=== PATIENT | female | born 1955 | race African-American/Black ===

== ENCOUNTER 2016-01-04 13:00 | Inpatient (IN) | payer OTHER, MEDICARE ==
[~2016-01-04] VITALS: Ht 152.4 cm; Wt 90.8 kg
--- NOTE | 2016-02-19 08:44 | MH ---
cc: Michele REDDY M.D. DATE OF ADMISSION: 02/23/2016 ADMISSION DIAGNOSIS Osteoarthritic degeneration right knee, now being admitted for right total knee arthroplasty. HISTORY OF PRESENT ILLNESS Admission history and physical is as follows: This pleasant 60-year-old female is being admitted today for right total knee arthroplasty due to severe painful osteoarthritic degeneration right knee. OTHER PAST HISTORY 1. She has had a left total knee done in the past. 2. She has a history of hypertension for which she takes hydrochlorothiazide. REVIEW OF SYSTEMS Noncontributory. FAMILY HISTORY Noncontributory. SOCIAL HISTORY She does not smoke or drink. ALLERGIES DARVOCET. PHYSICAL EXAMINATION GENERAL: We find a 60-year-old female, well-developed, well-nourished, oriented x3, complaining of pain in her right knee. VITAL SIGNS: Blood pressure 140/82, pulse 67 and regular, respirations 20, temperature 98.1, pulse oximetry 99% on room air. HEENT: Eyes PERRLA, EOMI. Ears, nose, mouth clear. NECK: Supple. LUNGS: Clear. HEART: Regular rate. ABDOMEN: Soft. Positive bowel sounds and nontender. EXTREMITIES: Reveals the right knee to be tender with crepitance on range of motion. She is neurovascularly intact to her toes. IMPRESSION AT THIS TIME Severe painful osteoarthritic degeneration, right knee. PLAN Admission for right total knee arthroplasty today. The patient understands the procedure well and the use of Hibiclens scrub and Bactroban preoperatively and plans on going to a rehab center three days after surgery. MD FREDRICK Dixon/EDOUARD /2:24 PM /8:34 AM
[2016-02-19] MEDS ORDERED: AMLO5TAB2 PO (12:10)
[2016-02-19] MEDS ORDERED: HYDR25TA5 PO (12:10)
[2016-02-19] MEDS ORDERED: HYDR-3535 PO (12:10)
[2016-02-23] MEDS ORDERED: VANCOMYCIN 1000 MG/NS 250 ML (for <70 kg) IV SCH ×2 (05:30)
[2016-02-23] MEDS ORDERED: ceFAZolin 2 GM PREMIX 50 ML IV SCH (05:30)
[2016-02-23] MEDS: CHLORHEXIDINE GLUCONATE 4% SOLN 120 ML BTL TOP SCH (05:30)
[2016-02-23] MEDS ORDERED: METOPROLOL TARTRATE 25 MG TAB PO PRN (05:45)
[2016-02-23] MEDS ORDERED: INSULIN HUMAN REGULAR 1,000 UNITS/10 ML VIAL SQ PRN (05:45)
[2016-02-23 05:48] VITALS: BP 128/68; PULSE 68; RESP 20; TEMP 98.2; O2SAT 99
[2016-02-23] MEDS ORDERED: LACTATED RINGER'S 1000 ML IV SCH (06:00)
[2016-02-23] MEDS ORDERED: SODIUM CHLORID 0.9% 500 ML IV SCH (06:00)
[2016-02-23 06:07] LABS: AUTOMATED NEUTROPHIL # 2.8 TH/MM3 (1.8-7.7); BASOPHIL % 0.3 % (0.0-2.0); EOSINOPHIL # 0.1 TH/MM3 (0-0.4); EOSINOPHIL % 1.2 % (0.0-4.0); HEMATOCRIT 40.3 % (35.0-46.0); LYMPH % 58.9 % (9.0-44.0); MEAN CELL VOLUME 80.7 FL (80.0-100.0); MEAN CORPUSCULAR HEMOGLOBIN 26.9 PG (27.0-34.0); MEAN CORPUSCULAR HGB CONC 33.3 % (32.0-36.0); MONO % 6.8 % (0.0-8.0); NEUT % 32.8 % (16.0-70.0); PLATELET COUNT 264 TH/MM3 (150-450); RED CELL DISTRIBUTION WIDTH 14.7 % (11.6-17.2); WHITE BLOOD COUNT 8.6 TH/MM3 (4.0-11.0)
[2016-02-23 06:10] LABS: HEMO FLAGS AUTO DIFF
[2016-02-23] MEDS ORDERED: FAMOTIDINE 20 MG/2 ML VIAL ONE (07:08)
[2016-02-23] MEDS ORDERED: DEXAMETHASONE SOD PHOS 4 MG/ML VIAL ONE (07:08)
[2016-02-23] MEDS ORDERED: MIDAZOLAM HCL 5 MG/5 ML VIAL ONE (07:08)
[2016-02-23 07:21] LABS: PLATELET ESTIMATE SMEAR NORMAL (NORMAL); PLATELET MORPHOLOGY NORMAL (NORMAL); SCAN/DIFF AUTO DIFF CONFIRMED
[2016-02-23] MEDS ORDERED: CPMMACHINE (08:12)
[2016-02-23] MEDS ORDERED: SODIUM CHLORIDE 0.9% FLUSH 5 ML FLUSH IVF PRN (08:15)
[2016-02-23] MEDS ORDERED: TEMAZEPAM 15 MG CAP PO PRN (08:15)
[2016-02-23] MEDS ORDERED: ACETAMINOPHEN/HYDROcodone 325 MG/10 MG TAB PO PRN (08:15)
[2016-02-23] MEDS ORDERED: TRANEXAMIC ACID INJ 0 MG in SODIUM CHLORIDE 0.9% INJ 100 ML IV SCH (08:15)
[2016-02-23] MEDS ORDERED: ACETAMINOPHEN 325 MG TAB PO PRN (08:15)
[2016-02-23] MEDS ORDERED: diphenhydrAMINE HCL 50 MG/ML VIAL IV PRN (08:15)
[2016-02-23] MEDS ORDERED: ONDANSETRON HCL 4 MG/2 ML VIAL IVP PRN (08:15)
[2016-02-23] MEDS ORDERED: NALOXONE HCL 0.4 MG/ML AMP IV PRN ×2 (08:15)
[2016-02-23] MEDS: BUPIVACAINE LIPOSO PF 1.3% INJ 20 ML, BUPIVACAINE PF 0.25% INJ 20 ML in SODIUM CHLORIDE... P-ARTICULR SCH ×2 (08:30→10:06)
[2016-02-23] MEDS: SODIUM CHLORIDE 0.9% IV SCH ×2 (08:30→08:35)
[2016-02-23] MEDS: TRANEXAMIC ACID IV SCH ×2 (08:30→08:35)
[2016-02-23] MEDS ORDERED: ceFAZolin INJ 1,000 MG VIAL XX ONE (08:55)
[2016-02-23] MEDS: LACTATED RINGER'S 1000 ML INJ 1,000 ML IV SCH ×2 (09:00→19:45)
[2016-02-23] MEDS: SODIUM CHLORIDE 0.9% FLUSH 5 ML FLUSH IVF SCH ×2 (09:00→19:45)
[2016-02-23] MEDS: HYDROCHLOROTHIAZIDE 25 MG TAB PO SCH (09:00)
[2016-02-23] MEDS: amLODIPine BESYLATE 5 MG TAB PO SCH (09:00)
[2016-02-23] MEDS ORDERED: LACTATED RINGER'S 1000 ML INJ 1,000 ML IV ONE (10:48)
[2016-02-23] MEDS ORDERED: PROPOFOL 200 MG/20 ML AMP IV ONE (10:48)
[2016-02-23] MEDS ORDERED: ONDANSETRON HCL 4 MG/2 ML VIAL IV PUSH ONE (10:48)
[2016-02-23] MEDS ORDERED: DO NOT ADM ANY ANTICOAGULANT DRUGS XX PRN (11:00)
[2016-02-23] MEDS ORDERED: Post-op Orders (for Pharmacy) MISC XX ONE (11:00)
[2016-02-23] MEDS ORDERED: fentaNYL CITRATE 250 MCG/5 ML AMP ONE (11:01)
[2016-02-23] MEDS: MORPHINE SULFATE 30 MG/30 ML PCA IV SCH (11:12)
[2016-02-23] MEDS ORDERED: TRANEXAMIC ACID IV SCH (11:30)
[2016-02-23] MEDS ORDERED: SODIUM CHLORIDE 0.9% IV SCH (11:30)
[2016-02-23] MEDS ORDERED: BUPIVACAINE HCL PF 0.5% 30 ML VIAL NB ONE (11:38)
--- NOTE | 2016-02-23 12:17 | MP ---
cc: Michele BOWEN M.D. DATE OF SURGERY 02/23/2016 PREOPERATIVE DIAGNOSIS Osteoarthritic degeneration right knee. POSTOPERATIVE DIAGNOSIS Osteoarthritic degeneration right knee. SURGERY PERFORM Right total knee arthroplasty using Consensus Knee System, size 0 tibia, size 3 femur, size 2 patella and a size 14 insert with two batches of Needmore blue cement. SURGEON Dr. Bowen PRODUCT MANAGER MEDICAL DEVICE MADELAINE Lin ANESTHESIA General intubation and block. PROCEDURE After successful induction of anesthesia, the patient is placed on the operating room table in the supine position. The knee is prepped and draped in the usual manner. A tourniquet is inflated at the upper thigh and set to 300 mmHg pressure after exsanguination of the lower extremity. A longitudinal incision is made extending from 3 inches proximal to the superior pole of the patella, across the patella in longitudinal fashion, and down past the insertion of the tibial tubercle into the proximal tibia. The incision is carried down through subcutaneous tissue along the medial aspect of the patella and retinaculum, down through the capsule to expose the knee joint. The patella and patellar tendon are freed up enough to allow the patella to be inverted and retracted off the lateral side of the knee joint. The knee joint is left exposed. Small osteophytes are removed. All soft tissue is removed to allow proper position of the femoral and tibial cutting jig guide. The first femoral jig is then inserted along the distal end of the femur after first measuring to decide whether this is a small, medium, or large component. The notch is then drilled and the tibial cutting guide inserted into the femoral cutting guide, along with the ankle brace to allow for proper measurement of the tibial cutting surface that needed to be resected. Pins are inserted into the tibial cutting jig and femoral cutting jig to hold them in place. An oscillating saw is then used to resect the surface of the tibia. The surface of the tibia is then completely removed using sharp and blunt dissection. The anterior and posterior cuts of the femur are then made as well using an oscillating saw through the cutting guide. All guides are then removed and the varus/valgus angulation cutting guide applied to the femur for proper measurement of the proper amount of valgus. The anterior cutting guide for the femur is then inserted at the anterior femoral cuts made. Next, the first block trial is inserted into the femur to allow for proper condyle drill holes to be made which are then made followed by removal of the bone between the condyles using an oscillating saw as well as the bone removed at the most posterior surface of the condyle. After this, this guide is removed and the chamfer cuts made using the chamfer cutting guide from both anterior and posterior. Next, the femoral trial is then inserted, the tibial surface reflected anterior to expose the tibial surface and a tibial stem guide is inserted after first measuring for a standard, standard plus, large, or large plus surface to be used. After the stem is impacted the trial tibial surface is applied followed by the trial meniscal components. After full range of motion is found with the appropriate length meniscal components varying the patella is prepared by resecting the posterior aspect of the patella using an oscillating saw, inserting a trial. The trial is then removed and the cruciate cutting guide applied using the bur to cut the cruciate cuts. After cruciate cuts are made all trials are removed. The wound is irrigated copiously with antibiotic solution and Water Pik and the actual components inserted into place using Consensus Knee System, size 0 tibia, size 3 femur, size 2 patella and a size 14 insert along with the pre-made cutting jig with two batches of Needmore blue cement. After the cement has hardened and the components are found to have full range of motion with no instability, the tourniquet is deflated, total tourniquet time being 51 minutes at 300 mmHg pressure. Estimated blood loss was 100 cc. 120 cc Exparel was used around the knee joint for extra pain control and the deep fascia approximated with running #2 Quill, the subcutaneous tissue approximated with interrupted running 2-0 and 3-0 Monocryl suture. Steri-Strips, sterile dressing, knee immobilizer. No drain utilized. ESTIMATED BLOOD LOSS 100 cc. COUNTS Sponge and suture counts correct. The patient tolerated the procedure well and left the operating room in satisfactory condition. J. MD FREDRICK Knight/NILDA /10:42 AM /12:09 PM
--- NOTE | 2016-02-23 12:46 | RADRPT ---
EXAM DATE/TIME: 02/23/2016 11:07 [facility] COMPARISON: No previous studies available for comparison. INDICATIONS : Post op right knee replacement MEDICAL HISTORY : None. SURGICAL HISTORY : None. ENCOUNTER: Initial ACUITY: 1 day PAIN SCORE: 10/10 LOCATION: Right knee FINDINGS: Total knee arthroplasty is present. Hardware is intact. Alignment is anatomic. CONCLUSION: Satisfactory post right TKA Damian Brown MD on February 23, 2016 at 11:35 Board Certified Radiologist. This report was verified electronically.
[2016-02-23] MEDS: PCA - TOTAL MG MORPHINE DELIVERED PER SHIFT SCH ×2 (13:30→22:00)
[2016-02-23] MEDS ORDERED: PCA - TOTAL MG DILAUDID DELIVERED PER SHIFT SCH (14:00)
[2016-02-23 16:00] VITALS: BP 155/75; PULSE 76; RESP 18; TEMP 98.7; O2SAT 96
[2016-02-23] MEDS: ACETAMINOPHEN/HYDROcodone 325 MG/10 MG TAB PO PRN (18:25)
[2016-02-23 20:00] VITALS: BP 132/62; PULSE 67; RESP 16; TEMP 96.2; O2SAT 97
[2016-02-24] VITALS (8 sets, daily range): BP systolic 116–149; BP diastolic 58–69; PULSE 66–92; RESP 16–18; TEMP 96.3–99.2; O2SAT 93–99
[2016-02-24] MEDS: CHLORHEXIDINE GLUCONATE 4% SOLN 120 ML BTL TOP SCH (03:51)
[2016-02-24] MEDS: ACETAMINOPHEN/HYDROcodone 325 MG/10 MG TAB PO PRN ×3 (05:19→19:59)
[2016-02-24] MEDS: PCA - TOTAL MG MORPHINE DELIVERED PER SHIFT SCH ×3 (05:34→21:56)
[2016-02-24 06:26] LABS: HEMATOCRIT 35.5 % (35.0-46.0); REVIEW FLAG FINAL
[2016-02-24] MEDS: SODIUM CHLORIDE 0.9% FLUSH 5 ML FLUSH IVF SCH ×2 (08:07→19:59)
[2016-02-24] MEDS: amLODIPine BESYLATE 5 MG TAB PO SCH (08:07)
[2016-02-24] MEDS: HYDROCHLOROTHIAZIDE 25 MG TAB PO SCH (08:07)
[2016-02-24] MEDS: MORPHINE SULFATE 30 MG/30 ML PCA IV SCH (08:14)
[2016-02-24] MEDS: ENOXAPARIN SODIUM 30 MG/0.3 ML SYRINGE SQ SCH ×2 (09:58→21:55)
[2016-02-24] MEDS ORDERED: PNEUMOCOCCAL POLYVALENT INJ 25 MCG/0.5 ML SYR IM ONE (10:00)
[2016-02-24] MEDS: LACTATED RINGER'S 1000 ML INJ 1,000 ML IV SCH ×2 (10:00→21:55)
--- NOTE | 2016-02-24 11:47 | PD.ORT.PN ---
Subjective Subjective Remarks pt painful Objective Vitals Vital Signs Date Time Temp Pulse Resp B/P Pulse Ox O2 Delivery O2 Flow Rate FiO2 02/24/16 11:06 97 02/24/16 08:14 16 02/24/16 08:00 96.3 92 16 120/69 96 02/24/16 05:34 18 02/24/16 04:00 97.7 66 17 149/65 93 02/24/16 00:00 96.3 70 16 121/58 99 02/23/16 20:00 96.2 67 16 132/62 97 02/23/16 16:00 98.7 76 18 155/75 96 02/23/16 13:30 18 02/23/16 12:51 99.0 66 16 122/66 95 Nasal Cannula 3 02/23/16 12:45 16 122/66 95 Nasal Cannula 3 02/23/16 12:30 64 18 118/64 96 Nasal Cannula 3 02/23/16 12:15 63 16 128/68 97 Nasal Cannula 3 02/23/16 12:00 65 16 126/78 99 Nasal Cannula 3 I/O 02/23/16 02/23/16 02/23/16 02/24/16 02/24/16 02/24/16 07:00 15:00 23:00 07:00 15:00 23:00 Intake Total 1100 ml 240 ml 1490 ml Output Total 100 ml Balance 1000 ml 240 ml 1490 ml Intake Oral 240 ml 240 ml IV Total 1250 ml Other 1100 ml Output Estimated Blood Loss 100 ml # Voids 1 3 # Bowel Movements 0 0 Result Diagram: 02/24/16 0456 Objective Remarks sitting up in chair. Dressing dry and intact. No calf tenderness. Assessment & Plan Ortho Post Op Day #: 1 Problem List: Assessment and Plan Cont wound care and PT, medical consult for help with pain control as patient takes pain meds on chronic basis. Michele Bowen MD Feb 24, 2016 11:47
--- NOTE | 2016-02-24 15:22 | PD.CONS ---
HPI Service [facility] Consult Requested By Orthopedic surgery service Reason for Consult Medical management history of hypertension chronic pain Primary Care Physician Jennifer Mcnulty MD Diagnoses: History of Present Illness Patient is a very pleasant 61-year-old female with known history of osteoarthritis admitted under orthopedic services and underwent right total knee replacement today. Patient states increasing pain for the last 3-4 months now baseline still ambulates independently however uses a walker or scooter for long walks. States history of hypertension controlled by by mouth medications. Chronic pain on taking more cool every 6 hours. [facility] consulted for medical management. Patient is currently well controlled on ANTITANK ASSAULT GUNNER pump. Her main complaint right now is constipation. Review of Systems Constitutional: DENIES: Diaphoretic episodes, Fatigue, Fever, Weight gain, Weight loss, Chills, Dizziness, Change in appetite, Night Sweats Endocrine: DENIES: Abnorml menstrual pattern, Heat/cold intolerance, Polydipsia , Polyuria, Polyphagia Eyes: DENIES: Blurred vision, Diplopia, Eye inflammation, Eye pain, Vision loss , Photosensitivity, Double Vision Ears, nose, mouth, throat: DENIES: Tinnitus, Hearing loss, Vertigo, Nasal discharge, Oral lesions, Throat pain, Hoarseness, Ear Pain, Running Nose, Epistaxis, Sinus Pain, Toothache, Odynophagia Respiratory: DENIES: Apneas, Cough, Snoring, Wheezing, Hemoptysis, Sputum production, Shortness of breath Cardiovascular: DENIES: Chest pain, Palpitations, Syncope, Dyspnea on Exertion , PND, Lower Extremity Edema, Orthopnea, Claudication Gastrointestinal: DENIES: Abdominal pain, Black stools, Bloody stools, Constipation, Diarrhea, Nausea, Vomiting, Difficulty Swallowing, Anorexia Genitourinary: DENIES: Abnormal vaginal bleeding, Dysmenorrhea, Dyspareunia, Sexual dysfunction, Urinary frequency, Urinary incontinence, Urgency, Hematuria , Dysuria, Nocturia, Vaginal discharge Musculoskeletal: DENIES: Joint pain, Muscle aches, Stiffness, Joint Swelling, Back pain, Neck pain Integumentary: DENIES: Abnormal pigmentation, Pruritus, Rash, Nail changes, Breast masses, Breast skin changes, Nipple discharge Hematologic/lymphatic: DENIES: Bruising, Lymphadenopathy Neurologic: COMPLAINS OF: Abnormal gait Psychiatric: DENIES: Anxiety, Confusion, Mood changes, Depression, Hallucinations, Agitation, Suicidal Ideation, Homicidal Ideation, Delusions Past Family Social History Allergies: Coded Allergies: [id number]-N 100 (Verified Adverse Reaction, Mild, VOMITING, 02/23/16) Past Medical History Hypertension Chronic pain Osteoarthritis Past Surgical History Previous Left knee surgery Previous Right knee surgeries Reported Medications As an outpatient she was on 10 mg 1-2 tabs every 6 hours when necessary for pain Amlodipine 5 mg daily Hydrochlorothiazide 25 mg daily Active Ordered Medications See EMR she is on Dilaudid pump Family History Noncontributory Social History Denies smoking alcohol or substance abuse Physical Exam Vital Signs Vital Signs Date Time Temp Pulse Resp B/P Pulse Ox O2 Delivery O2 Flow Rate FiO2 02/24/16 14:00 16 02/24/16 12:00 98.3 70 16 140/69 96 02/24/16 11:06 97 02/24/16 08:14 16 02/24/16 08:00 96.3 92 16 120/69 96 02/24/16 05:34 18 02/24/16 04:00 97.7 66 17 149/65 93 02/24/16 00:00 96.3 70 16 121/58 99 02/23/16 20:00 96.2 67 16 132/62 97 02/23/16 16:00 98.7 76 18 155/75 96 Physical Exam GENERAL: in no apparent distress. SKIN: No rashes, Cool and dry. HEAD: Atraumatic. Normocephalic. No temporal or scalp tenderness. EYES: Pupils equal round and reactive. Extraocular motions intact. No scleral icterus. ENT: Nose without bleeding, purulent drainage or septal hematoma. Throat without erythema, tonsillar hypertrophy or exudate. Uvula midline. Airway patent. NECK: Trachea midline. No JVD or lymphadenopathy. Supple, nontender, no meningeal signs. CARDIOVASCULAR: Regular rate and rhythm, soft 2/6 systolic murmur no gallops, or rubs. RESPIRATORY: Clear to auscultation. Breath sounds equal bilaterally. No wheezes , rales, or rhonchi. GASTROINTESTINAL: Abdomen soft, non-tender, nondistended. No hepato-splenomegaly , or palpable masses. No guarding. MUSCULOSKELETAL: Extremities without clubbing, cyanosis, or edema. No joint tenderness, effusion, or edema noted. No calf tenderness. Negative Homans sign bilaterally. Right knee postop dressing in place NEUROLOGICAL: Awake and alert. Cranial nerves II through XII intact. Motor and sensory grossly within normal limits. Five out of 5 muscle strength in all muscle groups. Normal speech. Laboratory Laboratory Tests Test 02/24/16 04:56 Hemoglobin 11.5 Hematocrit 35.5 Result Diagram: 02/24/16 0456 Imaging Last Impressions Knee X-Ray 02/23/16 0806 Signed Impressions: Service Date/Time: Tuesday, February 23, 2016 11:07 - CONCLUSION: Satisfactory post right TKA Damian Brwon MD Assessment and Plan Assessment and Plan 61-year-old female admitted under orthopedic services Status post total knee replacement 02/23 Orthopedic service is following PTOT consult History of chronic pain. Patient currently on Dilaudid ANTITANK ASSAULT GUNNER pump.post op Continue on by mouth pain meds for breakthrough pain. History of hypertension Continue on amlodipine 5 mg daily. Hydrochlorothiazide 25 mg daily 2 g sodium diet Constipation. Start patient on Colace 100 mg by mouth twice a day Lovenox for DVT prophylaxis Thank you for this consultation follow patient in-house with Mariaelena Sánchez MD Feb 24, 2016 15:21
[2016-02-24] MEDS: MULTIVITAMINS/MINERALS THERAPEUTIC TAB PO SCH (19:59)
[2016-02-24] MEDS: DOCUSATE SODIUM 100 MG CAP PO SCH (19:59)
[2016-02-25] VITALS: BP 127/57; PULSE 78; RESP 16; TEMP 99.4; O2SAT 94
[2016-02-25] MEDS: CHLORHEXIDINE GLUCONATE 4% SOLN 120 ML BTL TOP SCH (01:04)
[2016-02-25] MEDS: ACETAMINOPHEN/HYDROcodone 325 MG/10 MG TAB PO PRN ×3 (03:13→21:48)
[2016-02-25 04:00] VITALS: BP 133/62; PULSE 76; RESP 16; TEMP 99.1; O2SAT 96
[2016-02-25] MEDS: MORPHINE SULFATE 30 MG/30 ML PCA IV SCH (04:54)
[2016-02-25] MEDS: PCA - TOTAL MG MORPHINE DELIVERED PER SHIFT SCH ×4 (04:55→20:39)
[2016-02-25 05:45] LABS: HEMATOCRIT 33.5 % (35.0-46.0); REVIEW FLAG FINAL
[2016-02-25] MEDS: DOCUSATE SODIUM 100 MG CAP PO SCH ×2 (07:51→21:48)
[2016-02-25] MEDS: amLODIPine BESYLATE 5 MG TAB PO SCH (07:51)
[2016-02-25] MEDS: ENOXAPARIN SODIUM 30 MG/0.3 ML SYRINGE SQ SCH ×2 (07:52→21:48)
[2016-02-25] MEDS: HYDROCHLOROTHIAZIDE 25 MG TAB PO SCH (07:52)
[2016-02-25] MEDS: MULTIVITAMINS/MINERALS THERAPEUTIC TAB PO SCH ×2 (07:52→21:48)
[2016-02-25] MEDS: SODIUM CHLORIDE 0.9% FLUSH 5 ML FLUSH IVF SCH ×2 (07:52→21:49)
[2016-02-25] MEDS: LACTATED RINGER'S 1000 ML INJ 1,000 ML IV SCH ×2 (07:53→20:38)
[2016-02-25 08:00] VITALS: BP 125/58; PULSE 72; RESP 18; TEMP 97.6; O2SAT 98
--- NOTE | 2016-02-25 09:53 | HHI.PR ---
Subjective Remarks Follow up for right total knee arthroplasty. No acute concerns. Denies any fever , chills. No BM yet. Denies pain and discomfort. Denies SOB/ dyspnea. Denies chest pain, palpitations, headaches, dizziness. Denies n/v/d. Objective Vitals Vital Signs Date Time Temp Pulse Resp B/P Pulse Ox O2 Delivery O2 Flow Rate FiO2 02/25/16 08:00 97.6 72 18 125/58 98 02/25/16 04:55 18 02/25/16 04:54 18 02/25/16 04:00 99.1 76 16 133/62 96 02/25/16 00:00 99.4 78 16 127/57 94 02/24/16 21:56 19 02/24/16 21:52 96 02/24/16 20:00 99.2 88 18 116/65 97 02/24/16 16:00 97.8 76 16 124/58 94 02/24/16 14:00 16 02/24/16 12:00 98.3 70 16 140/69 96 02/24/16 11:06 97 I/O 02/24/16 02/24/16 02/24/16 02/25/16 02/25/16 02/25/16 07:00 15:00 23:00 07:00 15:00 23:00 Intake Total 1490 ml 720 ml 846 ml 1018 ml Balance 1490 ml 720 ml 846 ml 1018 ml Intake Oral 240 ml 720 ml 480 ml 480 ml IV Total 1250 ml 366 ml 538 ml # Voids 3 2 2 2 # Bowel Movements 0 0 Result Diagram: 02/25/16 0440 Imaging Last Impressions Knee X-Ray 02/23/16 0806 Signed Impressions: Service Date/Time: Tuesday, February 23, 2016 11:07 - CONCLUSION: Satisfactory post right TKA Damian Brown MD Objective Remarks GENERAL: This is a well-nourished, well-developed patient, in no apparent distress. HEENT: Normocephalic. Pupils equal round and reactive. Nose without bleeding. Airway patent. NECK: Trachea midline. No JVD. Supple. CARDIOVASCULAR: Regular rate and rhythm, systolic murmur heard on the right upper sternal border, gallops, or rubs. RESPIRATORY: Clear to auscultation. Breath sounds equal bilaterally. No wheezes , rales, or rhonchi. GASTROINTESTINAL: Abdomen soft, non-tender, nondistended. Bowel Sounds normoactive x4. MUSCULOSKELETAL: Extremities without clubbing, cyanosis. Trace edema Right LE. NEUROLOGICAL: Awake and alert. Oriented x 3. No focal neuro deficit. ARANGO. Normal speech. Procedures Status post right TKA A/P Problem List: (1) Osteoarthritis of knee ICD Code: M17.9 Status: Acute (2) Status post revision of total replacement of left knee ICD Code: Z96.652 Status: Acute (3) Hypertension ICD Code: I10 Status: Chronic (4) Anxiety and depression ICD Code: F41.8 Status: Chronic (5) GERD (gastroesophageal reflux disease) ICD Code: K21.9 Status: Chronic Assessment and Plan Patient is a 61-year-old female with history of osteoarthritis admitted under orthopedic services status post right total knee replacement. Consulted for medical management. Status post right total knee arthroplasty - orthopedic management by primary team. - Pain management - currently on CATARACT LENS GENERATOR pump - PT OT consult HTN - continue amlodipine 5 mg daily, hydrochlorothiazide 25 mg daily - Monitor BP trend Constipation - MOM, Dulcolax - Monitor BMP DVT prop Lovenox Written by Bonnie Stinson, acting as scribe for Dr. Coulter on 02/25/16 at 09:30. The documentation accurately reflects the work performed [id number] by Lazaro lamar D.O on 02/25/16 at 09:30 Discharge Planning Plan for discharge per orthopedic service - longterm facility tomorrow or Monday. Nghia Coulter DO Feb 25, 2016 09:53 Bonnie Trivedi Feb 25, 2016 12:46
[2016-02-25] MEDS ORDERED: BISACODYL 10 MG SUPP RECTAL PRN (10:00)
[2016-02-25] MEDS ORDERED: MAGNESIUM HYDROXIDE SUSP 30 ML CUP PO PRN (10:00)
[2016-02-25] MEDS ORDERED: BACITRACIN OINT 0.9 GM PKT TOP PRN (10:15)
--- NOTE | 2016-02-25 10:55 | PD.ORT.PN ---
Subjective Subjective Remarks pt comfortable today. No complaints. Objective Vitals Vital Signs Date Time Temp Pulse Resp B/P Pulse Ox O2 Delivery O2 Flow Rate FiO2 02/25/16 08:00 97.6 72 18 125/58 98 02/25/16 04:55 18 02/25/16 04:54 18 02/25/16 04:00 99.1 76 16 133/62 96 02/25/16 00:00 99.4 78 16 127/57 94 02/24/16 21:56 19 02/24/16 21:52 96 02/24/16 20:00 99.2 88 18 116/65 97 02/24/16 16:00 97.8 76 16 124/58 94 02/24/16 14:00 16 02/24/16 12:00 98.3 70 16 140/69 96 02/24/16 11:06 97 I/O 02/24/16 02/24/16 02/24/16 02/25/16 02/25/16 02/25/16 07:00 15:00 23:00 07:00 15:00 23:00 Intake Total 1490 ml 720 ml 846 ml 1018 ml Balance 1490 ml 720 ml 846 ml 1018 ml Intake Oral 240 ml 720 ml 480 ml 480 ml IV Total 1250 ml 366 ml 538 ml # Voids 3 2 2 2 # Bowel Movements 0 0 Result Diagram: 02/25/16 0440 Objective Remarks sitting up in chair. Dressing dry and intact. No calf tenderness. Assessment & Plan Ortho Post Op Day #: 2 Problem List: Assessment and Plan Cont wound care and PT, SNF tomorrow.. DC RESPIRATORY THERAPIST ASSISTANT today. Michele Bowen MD Feb 25, 2016 10:55
[2016-02-25 12:00] VITALS: BP 161/70; PULSE 76; RESP 18; TEMP 98.9; O2SAT 98
[2016-02-25 16:00] VITALS: BP 129/57; PULSE 95; RESP 18; TEMP 99.7; O2SAT 97
[2016-02-25 19:44] VITALS: BP 123/73; PULSE 88; RESP 18; TEMP 99; O2SAT 98
[2016-02-26] VITALS: BP 120/58; PULSE 82; RESP 14; TEMP 99.6; O2SAT 98
[2016-02-26] MEDS ORDERED: BISACODYL 10 MG SUPP RECTAL PRN (05:45)
[2016-02-26] MEDS: ACETAMINOPHEN/HYDROcodone 325 MG/10 MG TAB PO PRN ×2 (06:00→10:32)
[2016-02-26] MEDS: amLODIPine BESYLATE 5 MG TAB PO SCH (07:47)
[2016-02-26] MEDS: MULTIVITAMINS/MINERALS THERAPEUTIC TAB PO SCH (07:47)
[2016-02-26] MEDS: HYDROCHLOROTHIAZIDE 25 MG TAB PO SCH (07:47)
[2016-02-26] MEDS: DOCUSATE SODIUM 100 MG CAP PO SCH (07:47)
[2016-02-26] MEDS: ENOXAPARIN SODIUM 30 MG/0.3 ML SYRINGE SQ SCH (07:48)
[2016-02-26 08:00] VITALS: BP 113/53; PULSE 67; RESP 19; TEMP 97.9; O2SAT 100
--- NOTE | 2016-02-26 08:15 | PD.ORT.PN ---
Subjective Subjective Remarks pt comfortable today. No complaints. Objective Vitals Vital Signs Date Time Temp Pulse Resp B/P Pulse Ox O2 Delivery O2 Flow Rate FiO2 02/26/16 00:00 99.6 82 14 120/58 98 02/25/16 19:44 99.0 88 18 123/73 98 02/25/16 17:55 21 02/25/16 16:00 99.7 95 18 129/57 97 02/25/16 14:00 16 02/25/16 12:00 98.9 76 18 161/70 98 I/O 02/25/16 02/25/16 02/25/16 02/26/16 02/26/16 02/26/16 07:00 15:00 23:00 07:00 15:00 23:00 Intake Total 1018 ml 720 ml 240 ml Balance 1018 ml 720 ml 240 ml Intake Oral 480 ml 720 ml 240 ml IV Total 538 ml # Voids 2 8 4 # Bowel Movements 0 2 Result Diagram: 02/25/16 0440 Objective Remarks Dressing dry and intact. No calf tenderness. Assessment & Plan Ortho Post Op Day #: 3 Problem List: Assessment and Plan Cont wound care and PT, SNF today Michele Bowen MD Feb 26, 2016 08:15
[2016-02-26] MEDS ORDERED: HYDR-3583 PO (08:20)
--- NOTE | 2016-02-26 08:20 | HHI.DS ---
Discharge Summary Admission Date Feb 23, 2016 at 05:02 Discharge Date: Feb 26, 2016 Admitting Diagnosis osteoarthritic degeneration right knee Diagnosis: (1) Total knee replacement status Diagnosis: Principal Brief History This is a 61 year old female patient CBC/BMP: 02/25/16 0440 Significant Findings Laboratory Tests Test 02/24/16 02/25/16 04:56 04:40 Hemoglobin 11.5 GM/DL 11.1 GM/DL (11.6-15.3) (11.6-15.3) Hematocrit 33.5 % (35.0-46.0) PE at Discharge Dressing dry and intact. No calf tenderness. Hospital Course Pt underwent right total knee arthroplasty on day of admission. She received a course of prophylactic IV antibiotics and started on anticoagulation therapy within 23 hours of surgery. She remained afebrile and began PT and daily wound care. Tolerated food and fluids well and was discharged on POD #3 in good condition to SNF for continuation of care on oral pain meds and anticoagulation meds. Pt Condition on Discharge: Good Discharge Disposition: Discharge to SNF Discharge Instructions Diet Instructions: As Tolerated, No Restrictions Activities You Can Perform: Full Weight Bearing, Shower Only-No Bath Activities to Avoid: Bathing, Driving Michele Bowen MD Feb 26, 2016 08:20
[2016-02-26 09:17] VITALS: O2SAT 98
--- NOTE | 2016-02-26 12:46 | HHI.PR ---
Subjective Remarks Follow-up for right total knee arthroplasty. Patient seen today. No acute concerns. Denies any fever, chills. Denies pain and discomfort. Denies SOB/ dyspnea. Denies chest pain, palpitations, headaches, dizziness. Denies n/v/d. Plan for DC today to rehabilitation facility. Objective Vitals Vital Signs Date Time Temp Pulse Resp B/P Pulse Ox O2 Delivery O2 Flow Rate FiO2 02/26/16 09:17 98 02/26/16 08:00 97.9 67 19 113/53 100 02/26/16 00:00 99.6 82 14 120/58 98 02/25/16 19:44 99.0 88 18 123/73 98 02/25/16 17:55 21 02/25/16 16:00 99.7 95 18 129/57 97 02/25/16 14:00 16 I/O 02/25/16 02/25/16 02/25/16 02/26/16 02/26/16 02/26/16 07:00 15:00 23:00 07:00 15:00 23:00 Intake Total 1018 ml 720 ml 240 ml Balance 1018 ml 720 ml 240 ml Intake Oral 480 ml 720 ml 240 ml IV Total 538 ml # Voids 2 8 4 # Bowel Movements 0 2 Result Diagram: 02/25/16 0440 Imaging Last Impressions Knee X-Ray 02/23/16 0806 Signed Impressions: Service Date/Time: Tuesday, February 23, 2016 11:07 - CONCLUSION: Satisfactory post right TKA Damian Brown MD Objective Remarks GENERAL: This is a well-nourished, well-developed patient, in no apparent distress. HEENT: Normocephalic. Pupils equal round and reactive. Nose without bleeding. Airway patent. NECK: Trachea midline. No JVD. Supple. CARDIOVASCULAR: Regular rate and rhythm, systolic murmur heard on the right upper sternal border, gallops, or rubs. RESPIRATORY: Clear to auscultation. Breath sounds equal bilaterally. No wheezes , rales, or rhonchi. GASTROINTESTINAL: Abdomen soft, non-tender, nondistended. Bowel Sounds normoactive x4. MUSCULOSKELETAL: Extremities without clubbing, cyanosis. Trace edema Right LE. NEUROLOGICAL: Awake and alert. Oriented x 3. No focal neuro deficit. ARANGO. Normal speech. Procedures Status post right TKA A/P Problem List: (1) Osteoarthritis of knee ICD Code: M17.9 Status: Acute (2) Status post revision of total replacement of left knee ICD Code: Z96.652 Status: Acute (3) Hypertension ICD Code: I10 Status: Chronic (4) Anxiety and depression ICD Code: F41.8 Status: Chronic (5) GERD (gastroesophageal reflux disease) ICD Code: K21.9 Status: Chronic Assessment and Plan Patient is a 61-year-old female with history of osteoarthritis admitted under orthopedic services status post right total knee replacement. Consulted for medical management. Status post right total knee arthroplasty - orthopedic management by primary team. - Pain management - by mouth pain meds - PT OT consult HTN - continue amlodipine 5 mg daily, hydrochlorothiazide 25 mg daily - Monitor BP trend Constipation - MOM, Dulcolax - Monitor BMP DVT prop Lovenox Written by Bonnie Stinson, acting as scribe for Dr. Coulter on 02/26/16 at 10:30. The documentation accurately reflects the work performed [id number] by me on at 10:30 Discharge Planning Plan for discharge per orthopedic service - [facility] facility. Bonnie Trivedi Feb 26, 2016 12:46 Nghia Coulter DO Feb 26, 2016 23:07
== END 2016-02-26 10:57 | DRG 470 ==
LOC: HSDI 02-23 05:02 → N06A 02-23 13:06
PROVIDERS: ADMIT Surgery; ATTEND Surgery
PROC: 3E0T3CZ (ICD-10-PCS; 2016-02-23)
PROC: 0SRC0J9 Replacement of Right Knee Joint with Synthetic Substitute, Cemented, Open Approach (ICD-10-PCS; principal; 2016-02-23 08:18)
DX: M17.11 Unilateral primary osteoarthritis, right knee (principal); I10 Essential (primary) hypertension; G89.29 Other chronic pain; K59.00 Constipation, unspecified; K21.9 Gastro-esophageal reflux disease without esophagitis; E66.9 Obesity, unspecified; Z68.39 Body mass index [BMI] 39.0-39.9, adult
CPT/HCPCS: 73560; 85014; 85018; 85025; 86850; 86900; 86901; 94150; C1776; C9290; J0690; J1100; J1650; J2250; J2270; J2405; J3010; J3370; J7050; J7120; L1830

== ENCOUNTER 2016-11-16 13:08 | Emergency (ER) | payer OTHER, MEDICAID ==
[~2016-11-16] VITALS: Ht 152.4 cm; Wt 80.0 kg
[~2016-11-16 13:08] MED LIST: AMLO5TAB2 PO; CPMMACHINE; HYDR-3535 PO; HYDR-3583 PO; HYDR25TA5 PO
[2016-11-16 13:10] VITALS: BP 142/69; PULSE 78; RESP 16; TEMP 98; O2SAT 99
--- NOTE | 2016-11-16 13:17 | PD ---
Physical Exam Date Seen by Provider: Nov 16, 2016 Time Seen by Provider: 13:15 Narrative 61 year old female here for left ankle pain. No injury. Going on for 4 days. Progressively worst. With limping in triage. Pain is 5/10. Worst with weight bearing. No prior injuries. No rash per patient. Using walker in triage. Vitals stable in triage. Awaiting bed placement. Data Data Last Documented VS Vital Signs Date Time Temp Pulse Resp B/P (MAP) Pulse Ox O2 Delivery O2 Flow Rate FiO2 11/16/16 13:10 98.0 78 16 142/69 (93) 99 Room Air [facility] Medical Record Reviewed: Yes Supervised Visit with MARILEE: No Urban Tinsley Nov 16, 2016 13:17
--- NOTE | 2016-11-16 13:47 | PD ---
HPI Chief Complaint: Pain: Acute or Chronic Time Seen by Provider: 13:45 Travel History International Travel<30 days: No Contact w/Intl Traveler<30days: No Traveled to known affect area: No History of Present Illness HPI 61-year-old female presents to emergency Department with complaint of pain to the back of her left ankle 4 days. Denies injury. Denies ankle edema. Denies paresthesias, loss of sensation, decreased range of motion, decreased strength to the affected extremity. Has not taken any medication a any treatments to relieve his symptoms. Walks with a walker and has been using it for support. Pain is aggravated with palpation and ambulation. Dr. Mcnulty is her primary care provider. Allergies to acetaminophen and propoxyphene. Has no other medical complaints. Symptoms are mild in severity. No other modifying factors or associated signs and symptoms. History Past Medical Histgory Menopausal: No Hx Cancer: No Social History Alcohol Use: No Tobacco Use: Yes (pack/week) Allergies-Medications (Allergen,Severity, Reaction): Coded Allergies: acetaminophen (Unverified Adverse Reaction, Mild, VOMITING, 11/16/16) propoxyphene (Unverified Adverse Reaction, Mild, VOMITING, 11/16/16) Reported Meds & Prescriptions Reported Meds & Active Scripts Active Hydrocodone-Acetaminophen 10-325 mg Tab 1 Tab PO Q4H PRN CPM-Continuous Passive Motion Machine 1 Ea Device 1 Ea .ROUTE DIRECTED Reported Lortab (Hydrocodone-Acetaminophen) 10-325 Mg Tab 1 Tab PO Q6H PRN Hydrochlorothiazide 25 Mg Tab 25 Mg PO DAILY Amlodipine (Amlodipine Besylate) 5 Mg Tab 5 Mg PO DAILY Review of Systems Except as stated in HPI: all other systems reviewed are Neg Physical Exam Narrative GENERAL: Well-nourished, well-developed black female patient, in no acute distress SKIN: Warm and dry. HEAD: Atraumatic. Normocephalic. EYES: Pupils equal and round. No scleral icterus. No injection or drainage. ENT: Mucosa pink and moist. Airway patent. NECK: Trachea midline. CARDIOVASCULAR: Regular rate. RESPIRATORY: No accessory muscle use. GASTROINTESTINAL: Round. MUSCULOSKELETAL: Left ankle without erythema, edema, ecchymosis; with tenderness on palpation to the posterior aspect; no obvious deformity; no reproducible tenderness on palpation to the bottom of the left heel. Left Lower extremity is supple and nontense with 2+ pedal pulse and sensory intact. No obvious deformities. No clubbing. No cyanosis. No edema. NEUROLOGICAL: Awake and alert. Oriented 3. No obvious cranial nerve deficits. Motor grossly within normal limits. Normal speech. PSYCHIATRIC: Appropriate mood and affect; insight and judgment normal. Data Data Last Documented VS Vital Signs Date Time Temp Pulse Resp B/P (MAP) Pulse Ox O2 Delivery O2 Flow Rate FiO2 11/16/16 13:10 98.0 78 16 142/69 (93) 99 Room Air MDM Medical Screen Exam Complete: Yes Emergency Medical Condition: No Differential Diagnosis Heel spur, tendinitis Narrative Course 61-year-old female with pain to the posterior aspect of the left ankle. Denies injury. The ankle is without erythema, edema, ecchymosis. I do not suspect fracture dislocation infolding imaging is not necessary at this time. The patient has her walker for support for ambulation. The patient to follow up outpatient with her primary care provider, Dr. Mcnulty. Instructed patient to follow up with podiatry as needed. Vital signs are stable and the patient is stable for outpatient follow-up and treatment. The patient has no urgent or emergent medical complaints. There is no emergent or urgent medical need at this time. I instructed the patient to follow up with their primary care provider. A medical screening exam was performed: At the time of evaluation the presenting medical condition was determined not to be of an emergent nature. The patient was given the option of receiving additional care, but declined. Patient was given options for additional community resources from which to obtain care. The Patient Has Been advised to seek medical attention for their presenting complaint. The patient has been advised to return to the ER at any time if an emergent condition develops. Primary Impression: Encounter for medical screening examination Condition: Stable Huong Hernandez [employer] Nov 16, 2016 13:47
== END 2016-11-16 13:55 | disposition left against medical advice (07) ==
LOC: NEPK 13:08
DX: M25.572 Pain in left ankle and joints of left foot (principal); F17.200 Nicotine dependence, unspecified, uncomplicated
CPT/HCPCS: 99281